=== PATIENT | male | born 1965 | race African-American/Black ===

== ENCOUNTER 2020-10-08 11:37 | Observation (INO) | payer OTHER ==
[2020-10-08] MEDS ORDERED: Acetaminophen 325 MG TAB PO PRN ×2 (11:41→19:02)
[2020-10-08] MEDS ORDERED: Ondansetron ODT 4 MG TAB PO PRN (11:41)
[2020-10-08 13:50] VITALS: BMI 25.4
[2020-10-08] MEDS ORDERED: Sodium Chloride 0.65% Nasal 44 ML BOT EA NARE PRN (19:02)
[2020-10-08] MEDS ORDERED: Oxymetazoline HCl 0.05% ( 15 ML ) NASAL PRN (19:02)
[2020-10-08] MEDS ORDERED: AMINOCAPROIC ACID 500 MG PO SCH (21:00)
[2020-10-08] MEDS: Ferrous Gluconate 324 MG TAB PO SCH (21:25)
[2020-10-08] MEDS: Famotidine 20 MG TAB PO SCH (21:25)
[2020-10-08] MEDS: Octreotide Acetate 100 MCG/ML VIAL SC SCH (21:29)
[2020-10-08 22:16] LABS: Hemoglobin 7.1 g/dL (13.5-17.5)
[2020-10-08] MEDS ORDERED: Promethazine 25 MG TAB PO SCH (22:45)
[2020-10-09 07:08] LABS: Hemoglobin 7.2 g/dL (13.5-17.5); Mean Corpuscular HGB CONC 29.4 g/dL (32.0-36.0); Mean Corpuscular Hemoglobin 26.3 pg (27.0-33.0); Mean Corpuscular Volume 89.4 fl (81.2-95.1); Mean Platelet Volume 11.4 fl (7.4-10.4); Platelet Count 269 10x3/uL (150-450); RBC Distribution Width 15.5 % (11.5-14.5); Red Blood Cell (RBC) Count 2.74 10x6/uL (4.32-5.72); White Blood Cell (WBC) Count 2.2 10x3/uL (3.5-10.5)
[2020-10-09 07:42] LABS: MDiff Complete? YES
[2020-10-09 07:43] LABS: Anion Gap 12 mmol/L (10-20); BUN (Urea Nitrogen) 19 mg/dL (8.4-25.7); Calc. Creatinine Clearance 87 mL/min (70-130); Calcium 8.2 mg/dL (7.8-10.44); Carbon Dioxide 22 mmol/L (22-29); Chloride 111 mmol/L (98-107); Glucose 106 mg/dL (70-105); Potassium 3.7 mmol/L (3.5-5.1); Sodium 141 mmol/L (136-145)
[2020-10-09 07:59] LABS: Eosinophils 2 % (0-10); Lymphocytes 23 % (21-51); Monocytes 11 % (0-10); Neutrophil 64 % (42-75)
[2020-10-09 08:02] LABS: Hypochromia SLIGHT = 6-15 cells (100X) (0-5/hpf); Platelet Morphology Comment Appears Adequate
[2020-10-09 08:38] LABS: Iron 14 ug/dL (65-175); Iron Binding Capacity, Total 301 mcg/dL (261-462)
[2020-10-09] MEDS ORDERED: Docusate 100 MG CAP PO SCH (09:00)
[2020-10-09] MEDS ORDERED: Cyanocobalamin (Vitamin B-12) 1,000 MCG TAB PO SCH (09:00)
[2020-10-09] MEDS ORDERED: AMINOCAPROIC ACID 500 MG PO SCH (09:00)
[2020-10-09] MEDS: Ferrous Gluconate 324 MG TAB PO SCH (09:05)
[2020-10-09] MEDS: Famotidine 20 MG TAB PO SCH (09:08)
[2020-10-09] MEDS: Octreotide Acetate 100 MCG/ML VIAL SC SCH ×2 (09:08→15:38)
[2020-10-09] MEDS ORDERED: Iron, Sodium Ferric Gluconate 125 MG in Sodium Chloride 0.9% 100 ML IVPB SCH (15:15)
[2020-10-09 16:33] LABS: Hemoglobin 8.6 g/dL (13.5-17.5)
[2020-10-09 16:50] VITALS: BP 118/62; TEMP 98.1
[2020-10-09] MEDS ORDERED: Promethazine 25 MG TAB PO SCH (21:00)
== END 2020-10-09 17:45 ==
LOC: CSHTELE 11:37 → INTOOBSV 11:37
PROVIDERS: ADMIT Family Medicine; ATTEND Family Medicine
DX: D62 Acute posthemorrhagic anemia (principal); I78.0 Hereditary hemorrhagic telangiectasia; K21.9 Gastro-esophageal reflux disease without esophagitis; Z79.899 Other long term (current) drug therapy
CPT/HCPCS: 36415; 36430; 80048; 83540; 83550; 85025; 86850; 86900; 86901; 86922; 96372; 96374; 96375; G0378; J2354; J2916; J3490; P9016; Q0162; Q0169